=== PATIENT | female | born 1960 | race Caucasian/White ===

== ENCOUNTER 2016-07-19 14:50 | Inpatient (IN) ==
[2016-07-19] MEDS: *HR* LORazepam 1 MG TABLET PO ONE ×2 (15:32→19:46)
[2016-07-19 15:54] LABS: Basophils % 0.7 %; Eosinophils # 0.1 K/mcL (0.0-0.6); Eosinophils % 1.7 %; Hematocrit 37.5 % (35.3-44.9); Hemoglobin 12.4 g/dL (11.5-15.4); Immature Granulocytes % 0.5 % (0-4); Lymphocytes # 1.3 K/mcL (0.6-4.6); Lymphocytes % 32.8 %; Mean Corpuscular HGB Conc 33.1 g/dL (31.6-35.5); Mean Corpuscular Hemoglobin 30.6 pg (28.0-33.3); Mean Corpuscular Volume 92.6 fL (83.0-100.0); Mean Platelet Volume 10.9 fL (9.4-12.4); Monocytes # 0.3 K/mcL (0.0-1.3); Monocytes % 6.9 %; Neutrophils # 2.3 K/mcL (1.6-8.9); Platelet Count 127 K/mcL (140-400); Red Blood Count 4.05 M/mcL (3.82-4.97); Red Cell Distribution Width 13.2 % (11.5-14.5); Segmented Neutrophils % 57.4 %
[2016-07-19 15:55] LABS: Bilirubin,Urine Negative (Negative); Blood,Urine Negative (Negative); Clarity,Urine Cloudy (Clear); Color,Urine Yellow (Yellow); Glucose,Urine (UA) Normal (Normal); Ketones,Urine Negative (Negative); Leukocyte Esterase,Urine Moderate (Negative); Nitrite,Urine Negative (Negative); Protein,Urine Negative (Neg-Trace); Specific Gravity,Urine 1.013 (1.010-1.025); Urobilinogen,Urine Normal (Normal)
[2016-07-19 15:58] LABS: Amphetamine Screen,Urine Negative ng/mL (Cutoff=1000); Bacteria,Urine Few per hpf (None-Few); Barbiturate Screen,Urine Negative ng/mL (Cutoff=200); Benzodiazepines Screen,Urine Positive ng/mL (Cutoff=200); Cannabinoid Screen,Urine Negative ng/mL (Cutoff = 50); Cocaine Screen,Urine Negative ng/mL (Cutoff= 300); Hyaline Casts,Urine None Seen per lpf (None-Few); Opiate Screen,Urine Negative ng/mL (Cutoff=300); Phencyclidine Screen,Urine Negative ng/mL (Cutoff=25); Squamous Epithelial Cell,Urine Many per lpf (None-Few); WBC,Urine 30-50 per hpf (0-3)
[2016-07-19 16:09] LABS: Albumin 3.7 g/dL (3.5-5.0); Albumin/Globulin Ratio 1.1 (1.1-2.2); BUN/Creatinine Ratio 7 (6-26); Bilirubin,Direct 0.4 mg/dL (0.0-0.5); Bilirubin,Indirect 0.7 mg/dL (0.0-1.2); Bilirubin,Total 1.1 mg/dL (0.2-1.2); Blood Urea Nitrogen 6 mg/dL (7-20); Calcium 9.2 mg/dL (8.6-10.8); Carbon Dioxide 26 mEq/L (19-29); Chloride 108 mEq/L (98-109); Globulin 3.3 g/dL (2.4-3.5); Glucose 178 mg/dL (70-99); Osmolality,Calculated 294 (280-300); Potassium 3.6 mEq/L (3.5-4.5); Sodium 141 mEq/L (136-145); eGFR For African Americans > 60 (> 60); eGFR For Non-African Americans > 60 (> 60)
[2016-07-19 16:10] LABS: Acetaminophen < 1.0 mcg/mL (10-30); Ethanol < 10 mg/dL (0-10); Salicylate < 5.0 mg/dL (15-30)
[2016-07-19 16:30] LABS: Thyroid Stimulating Hormone 0.787 mcIU/mL (0.350-4.840)
[2016-07-19] MEDS ORDERED: cephALEXin 250 MG CAPSULE PO ONE (17:51)
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
[2016-07-19] MEDS ORDERED: Ibuprofen 400 MG TABLET PO PRN (21:40)
[2016-07-19] MEDS ORDERED: *HR* LORazepam 1 MG TABLET PO PRN (21:40)
[2016-07-19] MEDS ORDERED: MOM Conc 10 ML UD.LIQ PO PRN (21:40)
[2016-07-19] MEDS ORDERED: *HR* LORazepam 2 MG/ML VIAL IM PRN (21:40)
[2016-07-19] MEDS ORDERED: Haloperidol Lactate 5 MG/ML VIAL IM PRN (21:40)
[2016-07-19] MEDS ORDERED: traZODone 50 MG TABLET PO PRN (21:40)
[2016-07-19] MEDS ORDERED: Mag Hydrox/Al Hydrox/Simeth 30 ML UDC PO PRN (21:40)
[2016-07-19] MEDS ORDERED: hydrOXYzine pamoate 25 MG CAPSULE PO PRN (21:40)
[2016-07-19] MEDS ORDERED: diazePAM 2 MG TABLET PO PRN (21:47)
[2016-07-19] MEDS ORDERED: tiZANidine 4 MG TABLET PO PRN (21:47)
[2016-07-19] MEDS ORDERED: Ondansetron ODT 4 MG TAB.RAPDIS SL PRN (21:47)
[2016-07-19] MEDS ORDERED: INSULIN DETEMIR 70 UNIT SQ SCH (22:00)
[2016-07-19] MEDS: ARIPiprazole 5 MG TABLET PO SCH (22:41)
[2016-07-19] MEDS: cephALEXin 500 MG CAPSULE PO SCH (22:41)
[2016-07-19] MEDS: Pregabalin 75 MG CAPSULE PO SCH (22:41)
[2016-07-19] MEDS: lamoTRIgine 100 MG TABLET PO SCH (22:41)
[2016-07-19] MEDS: LIRAGLUTIDE 0.6 MG SQ SCH (22:44)
[2016-07-19] MEDS: Insulin DETEMIR 100 UNIT/ML X5UNITS SQ SCH (22:45)
[2016-07-20] MEDS: Aspirin 81 MG TAB.CHEW PO SCH (08:48)
[2016-07-20] MEDS: cephALEXin 500 MG CAPSULE PO SCH ×2 (08:48→20:20)
[2016-07-20] MEDS: Famotidine 20 MG TABLET PO SCH (08:48)
[2016-07-20] MEDS: *HR* Metformin 500 MG TABLET PO SCH ×2 (08:49→16:46)
[2016-07-20] MEDS: *HR* SitaGLIPtin 25 MG TABLET PO SCH ×2 (08:49→16:46)
--- NOTE | 2016-07-20 10:48 | Psychiatry History & Physical ---
Date of Encounter: 07/20/16 Time of Encounter: 10:15 History of Present Illness Patient Stated Chief Complaint: Suicidal ideation Medicare Admission Attestation: For traditional Medicare patients the provided hospital inpatient services are reasonable and necessary and in the case of services not specified as inpatient -only under 42 CFR 419.22 (n), that they are appropriately provided as inpatient services in accordance 42 CFR 412.3. For Critical Access Hospital the patient may reasonably be expected to be discharged or transferred to a hospital within 96 hours after admission to the Critical Access Hospital. Admitted From: Emergency Dept History of Present Illness: Ms. Martinez is a 56 year old female admitted from the emergency department for depression and suicidal ideation. Patient is stressed outlets by multiple medical problems including trigeminal neuralgia, diabetes, hyperlipidemia. She has been treated for depression with medication and seeing a psychiatrist and therapist. Patient was having thoughts about driving her car into a ditch. She denied any past suicide attempts or psychiatric hospitalizations. 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 She denies any use of alcohol or drugs. Past Med Surg Social Fam HX - Past Medical History Medical history: diabetes, GERD, hyperlipidemia, other - Past Psychiatric History Psychiatric history: Reports: depression, panic disorder. Denies: previous psychiatric hospitalization - Past Surgical History Surgical History: non-contributory, TIMOTHY/BSO - Social History Smoking Status: Never smoker Smokeless Tobacco Status: No Alcohol use: occasionally Drug use: none Medications & Allergies Amitriptyline [Elavil] 100 mg PO HS 10/28/15 [History] Pravastatin Sodium [Pravachol] 20 mg PO DAILY 10/28/15 [History] Pregabalin [Lyrica] 600 mg PO HS 10/28/15 [History] Ranitidine HCl [Heartburn Relief] 150 mg PO DAILY 10/28/15 [History] Tizanidine HCl [Zanaflex] 4 mg PO HS PRN 10/29/15 [History] ARIPiprazole [Abilify] 30 mg PO HS 02/27/16 [History] Insulin DETEMIR [Levemir] 70 unit SQ HS 02/27/16 [History] Sitagliptin Phos/Metformin HCl [Janumet 50-1,000 mg Tablet] 2 tab PO QPM [History] diazePAM [Valium] 2 mg PO DAILY PRN 02/27/16 [History] lamoTRIgine [Lamictal] 200 mg PO HS 02/27/16 [History] Aspirin 81 mg PO DAILY 05/08/16 [History] Ondansetron ODT [Zofran ODT] 4 mg SL Q6HR PRN #10 tab.aprildis 07/14/16 [Rx] Liraglutide [Victoza 2-Jamie] 0.6 mg SQ HS 07/19/16 [History] Allergies No Known Allergies Allergy (Verified 07/14/16 15:55) Review of Systems Psychiatric: Reports: depression, anxiety, suicidal ideation, hopelessness Mental Status Exam Patient orientation: Yes Person, Yes Time, Yes Place Level of alertness: Alert Patient appearance: Appropriate, Well Groomed, Obese Behavior: calm, cooperative, anxious Psychomotor activity: Slowed Eye contact: Maintains Eye Contact Mood description: Depressed, Anxious Affect description: congruent with mood, constricted Speech pattern: Normal rate, Normal rhythm, Normal tone Speech volume: Normal Thought process: Linear, Goal Oriented Thought content: Yes Suicidal ideation, No Homicidal ideation, No Overt delusions Perceptual disturbances: No Auditory hallucinations, No Visual hallucinations Attention span: Capable of Focused Attention Memory description: Grossly Intact Patient reliability: Reliable Historian Intelligence estimate: Average Judgment: Limited Insight: Partial Results - Vital Signs Vital signs: Temp Pulse Resp BP Pulse Ox 97.2 F L 96 20 108/63 98 07/20/16 09:00 07/20/16 09:00 07/20/16 09:00 07/20/16 09:00 07/19/16 14:59 - Labs Labs: Laboratory Last Values WBC 4.1 K/mcL (4.3-11.1) L 07/19/16 15:47 RBC 4.05 M/mcL (3.82-4.97) 07/19/16 15:47 Hgb 12.4 g/dL (11.5-15.4) 07/19/16 15:47 Hct 37.5 % (35.3-44.9) 07/19/16 15:47 MCV 92.6 fL (83.0-100.0) 07/19/16 15:47 MCH 30.6 pg (28.0-33.3) 07/19/16 15:47 MCHC 33.1 g/dL (31.6-35.5) 07/19/16 15:47 RDW 13.2 % (11.5-14.5) 07/19/16 15:47 Plt Count 127 K/mcL (140-400) L 07/19/16 15:47 MPV 10.9 fL (9.4-12.4) 07/19/16 15:47 Immature Gran % 0.5 % (0-4) 07/19/16 15:47 Seg Neutrophils % 57.4 % 07/19/16 15:47 Lymphocytes % 32.8 % 07/19/16 15:47 Monocytes % 6.9 % 07/19/16 15:47 Eosinophils % 1.7 % 07/19/16 15:47 Basophils % 0.7 % 07/19/16 15:47 Neutrophils # 2.3 K/mcL (1.6-8.9) 07/19/16 15:47 Lymphocytes # 1.3 K/mcL (0.6-4.6) 07/19/16 15:47 Monocytes # 0.3 K/mcL (0.0-1.3) 07/19/16 15:47 Eosinophils # 0.1 K/mcL (0.0-0.6) 07/19/16 15:47 Basophils # 0.0 K/mcL (0.0-0.2) 07/19/16 15:47 Sodium 141 mEq/L (136-145) 07/19/16 15:47 Potassium 3.6 mEq/L (3.5-4.5) 07/19/16 15:47 Chloride 108 mEq/L (98-109) 07/19/16 15:47 Carbon Dioxide 26 mEq/L (19-29) 07/19/16 15:47 BUN 6 mg/dL (7-20) L 07/19/16 15:47 Creatinine 0.86 mg/dL (0.57-1.11) 07/19/16 15:47 Est GFR ( Amer) > 60 (> 60) 07/19/16 15:47 Est GFR (Non-Af Amer) > 60 (> 60) 07/19/16 15:47 BUN/Creatinine Ratio 7 (6-26) 07/19/16 15:47 Glucose 178 mg/dL (70-99) H 07/19/16 15:47 POC Glucose 163 (58-89) H 07/20/16 07:04 Calculated Osmolality 294 (280-300) 07/19/16 15:47 Calcium 9.2 mg/dL (8.6-10.8) 07/19/16 15:47 Total Bilirubin 1.1 mg/dL (0.2-1.2) 07/19/16 15:47 Direct Bilirubin 0.4 mg/dL (0.0-0.5) 07/19/16 15:47 Indirect Bilirubin 0.7 mg/dL (0.0-1.2) 07/19/16 15:47 AST 34 Units/L (5-34) 07/19/16 15:47 ALT 48 Units/L (0-55) 07/19/16 15:47 Alkaline Phosphatase 66 Units/L (38-126) 07/19/16 15:47 Troponin I 0.01 ng/mL (0-0.03) 07/19/16 15:47 Serum Total Protein 7.0 g/dL (6.0-8.3) 07/19/16 15:47 Albumin 3.7 g/dL (3.5-5.0) 07/19/16 15:47 Globulin 3.3 g/dL (2.4-3.5) 07/19/16 15:47 Albumin/Globulin Ratio 1.1 (1.1-2.2) 07/19/16 15:47 Lipase 71 Units/L (8-78) 07/19/16 15:47 TSH 0.787 mcIU/mL (0.350-4.840) 07/19/16 15:47 Urine Color Yellow (Yellow) 07/19/16 15:28 Urine Clarity Cloudy (Clear) A 07/19/16 15:28 Urine pH 6.0 pH Units (5.0-8.0) 07/19/16 15:28 Ur Specific [place] 1.013 (1.010-1.025) 07/19/16 15:28 Urine Protein Negative mg/dL (Neg-Trace) 07/19/16 15:28 Urine Glucose (UA) Normal mg/dL (Normal) 07/19/16 15:28 Urine Ketones Negative mg/dL (Negative) 07/19/16 15:28 Urine Blood Negative (Negative) 07/19/16 15:28 Urine Nitrite Negative (Negative) 07/19/16 15:28 Urine Bilirubin Negative (Negative) 07/19/16 15:28 Urine Urobilinogen Normal mg/dL (Normal) 07/19/16 15:28 Ur Leukocyte Esterase Moderate (Negative) H 07/19/16 15:28 Urine Microscopic RBC 5-15 per hpf (0-3) H 07/19/16 15:28 Urine Microscopic WBC 30-50 per hpf (0-3) H 07/19/16 15:28 Ur Squamous Epith Cells Many per lpf (None-Few) H 07/19/16 15:28 Urine Bacteria Few per hpf (None-Few) 07/19/16 15:28 Hyaline Casts None Seen per lpf (None-Few) 07/19/16 15:28 Salicylates < 5.0 mg/dL (15-30) L 07/19/16 15:47 Urine Opiates Screen Negative ng/mL (Oktmgi=016) 07/19/16 15:28 Acetaminophen < 1.0 mcg/mL (10-30) L 07/19/16 15:47 Ur Barbiturates Screen Negative ng/mL (Ucyqtq=401) 07/19/16 15:28 Ur Phencyclidine Scrn Negative ng/mL (Cutoff=25) 07/19/16 15:28 Ur Amphetamines Screen Negative ng/mL (Ziqybz=4366) 07/19/16 15:28 U Benzodiazepines Scrn Positive ng/mL (Rjalqa=538) H 07/19/16 15:28 Urine Cocaine Screen Negative ng/mL (Cutoff= 300) 07/19/16 15:28 U Marijuana (THC) Screen Negative ng/mL (Cutoff = 50) 07/19/16 15:28 Ethyl Alcohol < 10 mg/dL (0-10) 07/19/16 15:47 Assessment and Plan (1) Recurrent major depression-severe Current visit: Yes Status: Acute Plan: Admit inpatient for safety and stabilization, Close observation, Suicide Precautions per unit protocol, Encourage participation in unit milieu, Group Therapy, Monitor sleep, Monitor appetite Additional Plan: Will add Cymbalta 30 mg twice a day benefits and side effects were discussed patient is agreeable to start and will monitor Patient was advised to work with her psychiatrist and PCP to review her polypharmacy Risks, benefits, side effects, alternatives discussed w/pt: Yes Patient agreeable to treatment: Yes Estimated Length of Stay (Days): 3 Qualifiers: Psychotic features: without psychotic features Qualified Code(s): F33.2 - Major depressive disorder, recurrent severe without psychotic features
[2016-07-20] MEDS: JANUMET PO SCH (17:06)
[2016-07-20] MEDS: ARIPiprazole 5 MG TABLET PO SCH (20:19)
[2016-07-20] MEDS: Pregabalin 75 MG CAPSULE PO SCH (20:19)
[2016-07-20] MEDS: lamoTRIgine 100 MG TABLET PO SCH (20:20)
[2016-07-20] MEDS: LIRAGLUTIDE 0.6 MG SQ SCH (20:21)
[2016-07-20] MEDS: Insulin DETEMIR 100 UNIT/ML X5UNITS SQ SCH (20:28)
[2016-07-21] MEDS ORDERED: SITAGLIPTIN 50 MG PO SCH (08:00)
[2016-07-21] MEDS ORDERED: METFORMIN 1000 MG PO SCH (08:00)
[2016-07-21] MEDS: Aspirin 81 MG TAB.CHEW PO SCH (08:36)
[2016-07-21] MEDS: cephALEXin 500 MG CAPSULE PO SCH ×2 (08:36→20:50)
[2016-07-21] MEDS: Famotidine 20 MG TABLET PO SCH (08:36)
--- NOTE | 2016-07-21 13:15 | Psychiatry Progress Note ---
Date of Encounter: 07/21/16 Time of Encounter: 13:00 Subjective Interval history: Patient is seen for follow-up. She reports feeling better, she participated in activities and socialize with other patients. She reported improved sleep and appetite. She denies suicidal ideation. She is motivated to add more activities to her scheduled and not feeling lonely. She tolerated medications changes. She is encouraged to journal and make notes. Review of Systems Psychiatric: Reports: depression, anxiety, suicidal ideation, hopelessness Objective: Exam Patient orientation: Yes Person, Yes Time, Yes Place Level of alertness: Alert Patient appearance: Appropriate, Well Groomed, Obese Behavior: calm, cooperative Psychomotor activity: Normal Eye contact: Maintains Eye Contact Mood description: Euthymic/stable, Anxious Affect description: congruent with mood, constricted Speech pattern: Normal rate, Normal rhythm, Normal tone Speech volume: Normal Thought process: Linear, Goal Oriented Thought content: No Suicidal ideation, No Homicidal ideation, No Overt delusions Perceptual disturbances: No Auditory hallucinations, No Visual hallucinations Judgment: Fair Insight: Partial Results - Vital Signs Vital Signs: Temp Pulse Resp BP Pulse Ox 97.2 F L 18 18 132/78 98 07/21/16 09:30 07/21/16 09:30 07/21/16 09:30 07/21/16 09:30 07/19/16 14:59 - Labs Labs: Laboratory Results - last 24 hr 07/21/16 06:48 POC Glucose 202 H Assessment and Plan (1) Recurrent major depression-severe Current visit: Yes Status: Acute Plan: Continue hospitalization, Close observation, Suicide Precautions per unit protocol, Encourage participation in unit milieu, Group Therapy, Monitor sleep, Monitor appetite Risks, benefits, side effects, alternatives discussed w/pt: Yes Patient agreeable to treatment: Yes Qualifiers: Psychotic features: without psychotic features Qualified Code(s): F33.2 - Major depressive disorder, recurrent severe without psychotic features Consult Discharge Plan - Plan Referrals: [facility] Tr[facility] Jaron Ramos [Outside] - 07/27/16 10:00 am (The above appointment is with Adrienne for counseling. You will also see Radha Salter in the same office on 08/13/16 at 9:30am )
[2016-07-21] MEDS: JANUMET PO SCH (17:35)
[2016-07-21] MEDS: LIRAGLUTIDE 0.6 MG SQ SCH (20:49)
[2016-07-21] MEDS: Insulin DETEMIR 100 UNIT/ML X5UNITS SQ SCH (20:50)
[2016-07-21] MEDS: lamoTRIgine 100 MG TABLET PO SCH (20:51)
[2016-07-21] MEDS: Pregabalin 75 MG CAPSULE PO SCH (20:52)
[2016-07-21] MEDS ORDERED: ARIPiprazole 10 MG TABLET PO SCH (21:00)
[2016-07-22] MEDS: cephALEXin 500 MG CAPSULE PO SCH (08:40)
[2016-07-22] MEDS: Aspirin 81 MG TAB.CHEW PO SCH (08:40)
[2016-07-22] MEDS: Famotidine 20 MG TABLET PO SCH (08:40)
[2016-07-22 09:06] VITALS: BP 138/83
--- NOTE | 2016-07-22 13:24 | Discharge Summary ---
Date of Encounter: 07/22/16 Time of Encounter: 13:00 Diagnosis - Discharge Diagnosis (1) Recurrent major depression-severe Status: Acute Qualifiers: Psychotic features: without psychotic features Qualified Code(s): F33.2 - Major depressive disorder, recurrent severe without psychotic features Medications - Discharge Medications Prescriptions: DULoxetine [Cymbalta] 30 mg PO BID #60 capsule. Amitriptyline [Elavil] 100 mg PO HS 10/28/15 [History] Pravastatin Sodium [Pravachol] 20 mg PO DAILY 10/28/15 [History] Pregabalin [Lyrica] 600 mg PO HS 10/28/15 [History] Ranitidine HCl [Heartburn Relief] 150 mg PO DAILY 10/28/15 [History] Tizanidine HCl [Zanaflex] 4 mg PO HS PRN 10/29/15 [History] ARIPiprazole [Abilify] 30 mg PO HS 02/27/16 [History] Insulin DETEMIR [Levemir] 70 unit SQ HS 02/27/16 [History] Sitagliptin Phos/Metformin HCl [Janumet 50-1,000 mg Tablet] 2 tab PO QPM [History] diazePAM [Valium] 2 mg PO DAILY PRN 02/27/16 [History] lamoTRIgine [Lamictal] 200 mg PO HS 02/27/16 [History] Aspirin 81 mg PO DAILY 05/08/16 [History] Ondansetron ODT [Zofran ODT] 4 mg SL Q6HR PRN #10 tab.rapdis 07/14/16 [Rx] Liraglutide [Victoza 2-Jamie] 0.6 mg SQ HS 07/19/16 [History] DULoxetine [Cymbalta] 30 mg PO BID #60 capsule. 07/22/16 [Rx] Patient Taking Own Medication 2 each PO QPM each 07/22/16 [Rx] cephALEXin [Keflex] 500 mg PO BID capsule 07/22/16 [Rx] Allergies No Known Allergies Allergy (Verified 07/14/16 15:55) Provider Date of admission: 07/19/16 18:35 Primary care physician: PCP NO Discharging clinician: Toñito Bhagat Assessment and Plan - Patient/Caregiver Discharge Instructions Activity: resume usual activities as tolerated Diet: regular diet - Follow up Plan Follow up with: Betlran Tran [facility] [employer] [employer] [facility] [Outside] - 07/27/16 10:00 am (The above appointment is with Adrienne for counseling. You will also see Radha Salter in the same office on 08/13/16 at 9:30am ) Functional capacity at discharge: independent ambulation Overall status at discharge: Stable Disposition: Home, Self-Care Hospital Course Hospital course: Ms. Martinez is a 56 year old female admitted for depression and suicidal ideation. For details of admission please see H&P On the unit medication were reviewed and Cymbalta 40 mg twice a day was added. Patient reported improvement in her moods and energy level and motivation. She denies suicidal ideation. She participated in activities and groups and made plans to add more activities to her scheduled and not to be lonely. She was future oriented and optimistic. Her discharge plans and follow-up were completed by the social science professor. - Time Spent with Patient Total time spent providing and/or coordinating discharge services: Less than 30 minutes Quality - Multiple Antipsychotics Patient discharged on 2 or more antipsychotic medications: No Procedures - Procedures Procedures: Medication Management, Crisis Stabilization, Supportive Therapy, Group Therapy, Psychoeducational Therapy Mental Status Exam - Mental Status Exam Patient orientation: Yes Person, Yes Time, Yes Place Level of alertness: Alert Patient appearance: Appropriate, Well Groomed, Obese Behavior: calm, cooperative Psychomotor activity: Slowed Eye contact: Maintains Eye Contact Mood description: Euthymic/stable Affect description: congruent with mood, full range Speech pattern: Normal rate, Normal rhythm, Normal tone Speech Volume: Normal Thought process: Linear, Goal Oriented Thought Content: No Suicidal ideation, No Homicidal ideation, No Overt delusions Perceptual Disturbances: No Auditory hallucinations, No Visual hallucinations Judgment: Limited Insight: Partial
== END 2016-07-22 17:10 | disposition home or self-care (01) | DRG 885 ==
LOC: EMEROO 14:50 → 1ANU 18:35
PROVIDERS: ADMIT Psychiatry & Neurology Psychiatry; ATTEND Psychiatry & Neurology Psychiatry

== ENCOUNTER 2018-06-01 23:26 | Observation (INO) ==
[2018-06-01] MEDS ORDERED: Isovue-370 500 ML BOTTLE IVP ONE (23:59)
[2018-06-02] MEDS ORDERED: 0.9 % Sodium Chloride 1,000 ML IVC ONE (00:38)
--- NOTE | 2018-06-02 01:11 | Emergency Department Note ---
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 Patient states she had acute onset of nausea, vertiginous symptoms after she had manipulation of the neck during a physical therapy session. Patient states symptoms started acutely after the physical therapy session. She now does not have vertiginous symptoms however she noticed a horizontal binocular diplopia that started about 12 hours prior to my examination. She initially presented at [place] emergency department however due to her diplopia and physical exam findings the center to [facility] for CTA of the head and neck. Patient denies recent trauma. Denies fever, chills, nausea, vomiting, diarrhea. There had the symptoms in the past. Denies recent upper respiratory infection. No antibiotic use. Denies sinus congestion or headache. Physician at previous emergency department had noticed a deficiency of the extraocular muscles and was concerned about possible stroke versus vertebral artery dissection. Pain Scale: 0 - Related Data Home Medications Medication Instructions Recorded Confirmed Amitriptyline [Elavil] 100 mg PO HS 10/28/15 06/01/18 Pravastatin Sodium [Pravachol] 20 mg PO DAILY 10/28/15 06/01/18 Tizanidine HCl [Zanaflex] 4 mg PO HS PRN 10/29/15 06/01/18 Insulin DETEMIR [Levemir] 70 unit SQ HS 02/27/16 06/01/18 diazePAM [Valium] 2 mg PO DAILY PRN 02/27/16 06/01/18 lamoTRIgine [Lamictal] 200 mg PO HS 02/27/16 06/01/18 Aspirin 81 mg PO DAILY 05/08/16 06/01/18 GlipiZIDE [Glipizide Xl] 5 mg PO DAILY 06/01/18 06/01/18 OLANZapine [Zyprexa] 5 mg PO HS 06/01/18 06/01/18 metFORMIN [Glucophage] 1,000 mg PO BIDWM 06/01/18 06/01/18 Previous Rx's Medication Instructions Recorded Ondansetron ODT [Zofran ODT] 4 mg SL Q6HR PRN #10 tab.rapdis 07/14/16 Allergies Allergy/AdvReac Type Severity Reaction Status Date / Time No Known Allergies Allergy Verified 07/14/16 15:55 All systems ED: reviewed and negative except as stated. Review of Systems: As Per [facility] Past Medical History - Past Medical History Attestation: Yes The following information was validated with the patient. 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 Bowel sounds present Neuro: A&O to person, place, time and situation. Pupils were equal and reactive to light and accommodation. Patient moving all extremities and did not have focal neurologic deficit on exam. Testing of the extraocular muscles did not reveal significant deficit on my exam however the right eye was seen and I have decreased mobility on previous physician exam. Psychiatric: cooperative and appropriate mood and affect. - General Limitations: no limitations General appearance: alert, in no apparent distress Course Vital Signs Temperature 97.8 F 06/02/18 00:03 Pulse Rate 82 04/18/19 00:03 Respiratory Rate 16 06/02/18 00:03 Blood Pressure 155/76 06/02/18 00:03 O2 Sat by Pulse Oximetry 98 06/02/18 00:03 Temperature 97.8 F 06/02/18 00:03 Pulse Rate 82 06/02/18 00:03 Respiratory Rate 16 06/02/18 00:03 Blood Pressure 155/76 06/02/18 00:03 O2 Sat by Pulse Oximetry 98 06/02/18 00:03 Oxygen Delivery Oxygen Delivery Room Air Medical Decision Making - MDM Narrative Medical decision making narrative: Patient has horizontal binocular diplopia, she will require CTA of the head, neck to rule out arterial dissection versus embolism. She will also likely require admission to the hospital for MRI and further workup. Imaging and laboratory evaluation is pending at this time. Patient care will be signed out to Dr. Ring pending imaging, laboratory evaluation, further evaluation and disposition. - Medical Records Medical records reviewed: Yes I reviewed the patient's medical records. - Lab Data Lab results reviewed: Yes I reviewed the patient's lab results. - Radiology Data Radiology results reviewed: Yes I reviewed the patient's radiology results.
[2018-06-02 02:32] LABS: BUN/Creatinine Ratio 16 (6-26); Blood Urea Nitrogen 12 mg/dL (6-20); Calcium 9.3 mg/dL (8.6-10.3); Carbon Dioxide 26 mEq/L (23-29); Chloride 103 mEq/L (98-107); Glucose 332 mg/dL (70-105); Osmolality,Calculated 301 (280-300); Sodium 139 mEq/L (136-145); eGFR For Non-African Americans > 60 (> 60)
[2018-06-02 02:33] LABS: Troponin I < 0.03 ng/mL (< 0.04)
[2018-06-02 02:36] LABS: Hematocrit 40.2 % (35.3-44.9); Hemoglobin 12.8 g/dL (11.5-15.4); Mean Corpuscular HGB Conc 31.8 g/dL (31.6-35.5); Mean Corpuscular Volume 97.3 fL (83.0-100.0); Mean Platelet Volume 11.3 fL (9.4-12.4); Platelet Count 110 K/mcL (140-400); Red Blood Count 4.13 M/mcL (3.82-4.97); Red Cell Distribution Width 13.8 % (11.5-14.5)
[2018-06-02 02:43] LABS: Prothrombin Time 11.6 Seconds (9.4-12.1)
[2018-06-02 02:45] LABS: Activated Partial Thrombo Time 38.4 Seconds (26.0-36.0)
[2018-06-02] MEDS ORDERED: Aspirin 325 MG TABLET PO ONE (05:09)
--- NOTE | 2018-06-02 06:52 | Urgent Care Visit Notes ---
Disposition Clinical Impression: Binocular vision disorder with diplopia Disposition: Admitted As Inpatient Condition: Good Time of Disposition: 03:00 History of Present Illness - General Chief Complaint: ED Eye Problems Stated Complaint: Double Vision/Dizziness- [facility] Time Seen by Provider: 06/01/18 23:51 Limitations: no limitations - Related Data Home Medications: Home Medications Medication Instructions Recorded Confirmed RX: Pravastatin Sodium [Pravachol] 20 mg PO HS 10/28/15 06/02/18 RX: diazePAM [Valium] 2 mg PO HS PRN 02/27/16 06/02/18 OLANZapine [Zyprexa] 5 mg PO HS 06/01/18 06/02/18 Aspirin [Adult Aspirin Regimen] 81 mg PO QPM 06/02/18 06/02/18 GlipiZIDE [Glipizide Xl] 5 mg PO QAM 06/02/18 06/02/18 Insulin DETEMIR [Levemir Flextouch] 70 unit SQ HS 06/02/18 06/02/18 Metformin HCl [Metformin ER 2,000 mg PO QPM 06/02/18 06/02/18 Osmotic] RX: Gabapentin [Neurontin] 900 mg PO HS 06/02/18 06/02/18 RX: Liraglutide [Victoza 3-Jamie] 1.8 mg SQ DAILY 06/02/18 06/02/18 Allergies/Adverse Reactions: Allergies Allergy/AdvReac Type Severity Reaction Status Date / Time No Known Allergies Allergy Verified 07/14/16 15:55 Past Medical History - Past Medical History Medical history: Reports: diabetes, GERD, hyperlipidemia, other Surgical history: Reports: non-contributory, TIMOTHY/BSO Psychiatric history: Reports: depression, panic disorder 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 Narrative Medical decision making narrative: Dr. Ring note: Patient was originally seen by prior attending physician Dr. Baron Dixon; Fixed bilateral diplopia since 10:11 AM. Initial imaging unremarkable. If this is an acute ischemic stroke in the distribution is in a small area of the brain which would not necessitate interventional radiologic procedures, especially now almost 20 hours after symptom onset. I did discuss the case with the on-call neurologist at [facility]. Patient was admitted in stable and improved condition to the hospitalist. MRI and neurology consult will happen after admission. No indication for emergent neurology, or interventional radiology intervention - Lab Data Result diagrams: 06/02/18 01:47 06/02/18 01:47 Lab Results 06/02/18 06/02/18 06/02/18 Range/Units 01:47 01:47 01:47 WBC 3.9 L (4.3-11.1) K/mcL RBC 4.13 (3.82-4.97) M/mcL Hgb 12.8 (11.5-15.4) g/dL Hct 40.2 (35.3-44.9) % MCV 97.3 (83.0-100.0) fL MCH 31.0 (28.0-33.3) pg MCHC 31.8 (31.6-35.5) g/dL RDW 13.8 (11.5-14.5) % Plt Count 110 L (140-400) K/mcL MPV 11.3 (9.4-12.4) fL PT 11.6 (9.4-12.1) Seconds INR 1.0 APTT 38.4 H (26.0-36.0) Seconds Sodium 139 (136-145) mEq/L Potassium 4.0 (3.5-5.1) mEq/L Chloride 103 (98-107) mEq/L Carbon Dioxide 26 (23-29) mEq/L BUN 12 (6-20) mg/dL Creatinine 0.74 (0.60-1.20) mg/dL Est GFR ( Amer) > 60 (> 60) Est GFR (Non-Af Amer) > 60 (> 60) BUN/Creatinine Ratio 16 (6-26) Glucose 332 H (70-105) mg/dL Calculated Osmolality 301 H (280-300) Calcium 9.3 (8.6-10.3) mg/dL Troponin I < 0.03 (< 0.04) ng/mL Course Vital Signs Temperature 97.8 F 06/02/18 00:03 Pulse Rate 82 06/02/18 00:03 Respiratory Rate 16 06/02/18 00:03 Blood Pressure 155/76 06/02/18 00:03 O2 Sat by Pulse Oximetry 98 06/02/18 00:03 Temperature 97.8 F 06/02/18 00:03 Pulse Rate 76 06/02/18 05:12 Respiratory Rate 18 06/02/18 06:46 Blood Pressure 120/61 06/02/18 06:46 O2 Sat by Pulse Oximetry 98 06/02/18 05:12 Oxygen Delivery Oxygen Delivery Room Air
[2018-06-02] MEDS ORDERED: Naloxone 0.4 MG/ML INJ IVP PRN (07:44)
[2018-06-02] MEDS ORDERED: traMADol 50 MG TABLET PO PRN (07:44)
[2018-06-02] MEDS ORDERED: D5% in Water 1,000 ML IVC PRN (07:49)
[2018-06-02] MEDS ORDERED: *HR* Dextrose 50 % in Water (Syg) 50 ML SYRINGE IVP PRN (07:49)
[2018-06-02] MEDS ORDERED: Dextrose Gel 15 GM/37.5 ML TUBE PO PRN ×2 (07:49)
[2018-06-02] MEDS: Insulin DETEMIR 100 UNIT/ML X5UNITS SQ SCH ×2 (09:11→21:25)
--- NOTE | 2018-06-02 09:53 | Internal Med History&Physical ---
Date of Encounter: 06/02/18 Time of Encounter: 09:47 Internal Medicine - H&P: HPI Chief complaint: double vision Plans for Post Hospital Care: Home History of present illness: Ms. 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 Patient presented to the hospital sudden onset double vision. Patient reports she has been taking PT/OT due to a left shoulder injury. On Wednesday following the exercises she started feeling light headed and having problem to keep her balance associated with nausea. On Wednesday her balance difficulty resolved. But then on Wednesday she started having double vision and she decided to go the ED for evaluation. She denies focal weakness, reported she cannot tell if she had any change in her speech because she lives alone. She denies light headedness, or the sensation of the room spinning around associated with the double vision. Reports the nausea has resolved but she continues to have double vision. denies headache, difficulty swallowing or numbness or tingling on her face or extremities. Past Med Surg Social Fam HX - Past Medical History Medical history: diabetes, GERD, hyperlipidemia, other Additional medical history: Trigeminal Neuropathy. Depression. Endomedriosis Psychiatric history: depression, panic disorder - Past Surgical History Surgical History: non-contributory, TIMOTHY/BSO Additional surgical history: D&C x 4. Glycerol Rhizotomy. leaft knee scope 02/2016 - Social History Smoking Status: Never smoker Smokeless Tobacco Status: No Alcohol use: occasionally Drug use: none Internal Medicine - H&P: Meds Pravastatin Sodium [Pravachol] 20 mg PO HS 10/28/15 [History] diazePAM [Valium] 2 mg PO HS PRN 02/27/16 [History] OLANZapine [Zyprexa] 5 mg PO HS 06/01/18 [History] Aspirin [Adult Aspirin Regimen] 81 mg PO QPM 06/02/18 [History] Gabapentin [Neurontin] 900 mg PO HS 06/02/18 [History] GlipiZIDE [Glipizide Xl] 5 mg PO QAM 06/02/18 [History] Insulin DETEMIR [Levemir Flextouch] 70 unit SQ HS 06/02/18 [History] Liraglutide [Victoza 3-Jamie] 1.8 mg SQ DAILY 06/02/18 [History] Metformin HCl [Metformin ER Osmotic] 2,000 mg PO QPM 06/02/18 [History] Allergy/AdvReac Type Severity Reaction Status Date / Time No Known Allergies Allergy Verified 07/14/16 15:55 All Systems PM: A 10-system review of systems was performed and is negative for pertinent findings except as documented above in the HPI. - Constitutional Constitutional: no chills, no fever(s), no weakness - EENT Eyes: blurry vision, diplopia, no decreased night vision, no loss of peripheral vision, no loss of vision, no pain, no photophobia, no seeing flashes, no spots in vision, no tunnel vision Nose, mouth and throat: no change in voice, no mouth pain - Cardiovascular Cardiovascular ROS IM: no chest pain, no edema, no lightheadedness, no palpitations, no paroxysmal nocturnal dyspnea, no syncope - Respiratory Respiratory: no cough - Gastrointestinal Gastrointestinal: no abdominal pain, no melena, no nausea, no vomiting - Genitourinary Genitourinary: no dysuria, no urinary frequency, no urinary incontinence, no urinary urgency - Musculoskeletal Musculoskeletal ROS IM: no muscle cramps, no muscle weakness - Integumentary Integumentary IM: no erythema - Neurological Neurological ROS: no confusion, no focal weakness, no frequent falls, no headache(s), no loss of vision, no numbness, no tingling, no vertigo, no weakness - Psychiatric Psychiatric: no anxiety, no hallucinations, no irritability - Endocrine Endocrine IM: no cold intolerance, no excessive sweating - Hematologic/Lymphatic Hematologic/Lymphatic: no lymphadenopathy - Allergic/Immunologic Allergic/Immunologic: no GI upset with certain foods Additional comments: Rest of the review of system negative. - Constitutional Vitals: Temp Pulse Resp BP Pulse Ox 97.8 F 80 16 130/72 98 06/02/18 09:00 06/02/18 09:00 06/02/18 09:00 06/02/18 09:00 06/02/18 08:06 Exam: Vitals: reviewed General: Patient AOx4. In mild distress due to double vision Head: atraumatic, normocephalic, Respiratory: Good respiratory effort. Clear to auscultation bilaterally, no wheezing, rales or crackles. Cardiovascular: RRR, normal s1 and s2, No clicks, rubs, gallops, or murmors. Abdomen: Obese, bowel sounds present normoactive x-4 quadrants. Abdomen is soft, nondistended. No guarding or rebound. Musculoskeletal: Spontaneously moving all extremities. no edema, no calf tenderness Skin: warm, dry, intact. Neuro: Sensation light touch intact. Cranial nerves 2-12 is intact. Not aphasic, rapid hand movements intact, [id number] intact, Psych: Patient's affect is normal Internal Med - H&P Results - Labs CBC & Chem 7: 06/02/18 01:47 06/02/18 01:47 Labs: Short CBC 06/02/18 Range/Units 01:47 WBC 3.9 L (4.3-11.1) K/mcL Hgb 12.8 (11.5-15.4) g/dL Hct 40.2 (35.3-44.9) % Plt Count 110 L (140-400) K/mcL BMP 06/02/18 01:47 Sodium 139 Potassium 4.0 Chloride 103 Carbon Dioxide 26 BUN 12 Creatinine 0.74 Glucose 332 H Calcium 9.3 Cardiac Enzymes 06/02/18 Range/Units 01:47 Troponin I < 0.03 (< 0.04) ng/mL - Impressions ITS Impressions Head CTA 06/01/18 23:59 IMPRESSION: No acute intracranial abnormality. Mild, less than 50%, stenosis of the internal carotid arteries by NASCET criteria. No intracranial flow-limiting stenosis. D/ / 06/02/2018 07:28:18 Fauzia Levin MD / julián Interpreting Provider: Fauzia Levin MD Neck CTA 06/01/18 23:59 IMPRESSION: No acute intracranial abnormality. Mild, less than 50%, stenosis of the internal carotid arteries by NASCET criteria. No intracranial flow-limiting stenosis. D/ / 06/02/2018 07:28:18 Fauzia Levin MD / julián Interpreting Provider: Fauzia Levin MD - Assessment and Plan (1) Diplopia Current Visit: Yes Status: Acute Assessment and plan: Patient reports diplopia of two days duration. CT/CT angio head IMPRESSION: No acute intracranial abnormality. Mild, less than 50%, stenosis of the internal carotid arteries by NASCET criteria. No intracranial flow-limiting stenosis. Plan MRI of the brain w/o contrast ordered to r/o CVA Bedside swallow evaluation by RN will continue aspirin 81mg/PO daily on a high intensity statin Neurology has been consulted recommendations appreciated consider TTE, if MRI positive for CVA. THS ordered (2) HLD (hyperlipidemia) Current Visit: Yes Status: Chronic Assessment and plan: Continue simvastatin 40 mg by mouth daily. Qualifiers: Hyperlipidemia type: unspecified Qualified Code(s): E78.5 - Hyperlipidemia, unspecified (3) DVT prophylaxis Current Visit: Yes Status: Chronic Assessment and plan: Heparin subcutaneous. (4) Recurrent major depression-severe Current Visit: No Status: Chronic Assessment and plan: Patient is on olanzapine 5 mg by mouth at bedtime Qualifiers: Psychotic features: without psychotic features Qualified Code(s): F33.2 - Major depressive disorder, recurrent severe without psychotic features (5) DM type 2 (diabetes mellitus, type 2) Current Visit: No Status: Chronic Assessment and plan: Hyperglycemic on presentation. Started on a carb controlled diet. levemir 10 unit BID, plus lispro medium dose ac. Qualifiers: Diabetes mellitus terminal clerk insulin use: with terminal clerk use Diabetes mellitus complication status: without complication Qualified Code(s): E11.9 - Type 2 diabetes mellitus without complications; Z79.4 - detention (current) use of insulin - Time Spent With Patient Total time spent is greater than 50% in coordination of care (as documented) at patient's floor/unit and/or counseling patient: Greater than 35 minutes (45)
--- NOTE | 2018-06-02 10:22 | Neurology - Consult Note ---
<Edi White J - Last Filed: 06/02/18 16:42> Date of Encounter: 06/02/18 Time of Encounter: 09:51 Assessment and Plan (1) Vertigo Current Visit: No Status: Acute (2) Diplopia Current Visit: Yes Status: Acute Neuro consulted to evaluate for cause of acute horizontal binocular diplopia with associated vertiginous symptoms. She reports her symptoms began rather abruptly. She denies any associated headache or eye pain. Initially there was some concern for possible dissection. However, CTA of the head and neck were unremarkable. Etiology continues to be unknown at this time; however, differential does include malignancy versus vascular etiology versus myasthenia gravis versus other. With the exception of the horizontal binocular diplopia the patient's neurological exam is nonfocal. At this juncture we are awaiting the results of the MRI; further treatment will be dictated by MRI results. Will order myasthenia panel History of Present Illness Chief complaint: Double vision, vertigo and nausea HPI: Ms. 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 She presents for evaluation of acute onset of horizontal binocular diplopia with associated vertiginous symptoms. She reports that the symptoms began Wednesday afternoon. She notes that on Wednesday she was receiving occupational therapy involving head and neck manipulation. After this manipulation she began to feel some dizziness and nausea and was having balance issues. The symptoms extended into Wednesday but did resolved by Wednesday evening. Then suddenly on Wednesday afternoon she began to experience the binocular diplopia. She denies any focal weakness/paresthesias, dysphagia, dysarthria, facial asymmetry headache or eye pain. She reports that the vertigo has subsided however, the horizontal binocular diplopia persists. Given the fact that these symptoms occurred shortly after head and neck manipulation there was concern for dissection. A CTA of the head and neck was unremarkable and did not reveal any occlusion, dissection or emboli. Given ongoing symptoms there is still concern for possible malignancy, vascular etiology or myasthenia gravis. Neurology will continue to evaluate for further causes. Past Med Surg Social Fam HX - Past Medical History Medical history: diabetes, GERD, hyperlipidemia, other Additional medical history: Trigeminal Neuropathy. Depression. Endomedriosis Psychiatric history: depression, panic disorder - Past Surgical History Surgical History: non-contributory, TIMOTHY/BSO Additional surgical history: D&C x 4. Glycerol Rhizotomy. leaft knee scope 02/2016 - Social History Smoking Status: Never smoker Smokeless Tobacco Status: No Alcohol use: occasionally Drug use: none Medications and Allergies Pravastatin Sodium [Pravachol] 20 mg PO HS 10/28/15 [History] diazePAM [Valium] 2 mg PO HS PRN 02/27/16 [History] OLANZapine [Zyprexa] 5 mg PO HS 06/01/18 [History] Aspirin [Adult Aspirin Regimen] 81 mg PO QPM 06/02/18 [History] Gabapentin [Neurontin] 900 mg PO HS 06/02/18 [History] GlipiZIDE [Glipizide Xl] 5 mg PO QAM 06/02/18 [History] Insulin DETEMIR [Levemir Flextouch] 70 unit SQ HS 06/02/18 [History] Liraglutide [Victoza 3-Jamie] 1.8 mg SQ DAILY 06/02/18 [History] Metformin HCl [Metformin ER Osmotic] 2,000 mg PO QPM 06/02/18 [History] Allergy/AdvReac Type Severity Reaction Status Date / Time No Known Allergies Allergy Verified 07/14/16 15:55 All Systems: The remainder of the systems were reviewed and are negative Review of Systems: REVIEW OF SYSTEMS GENERAL: Negative for any nausea, vomiting, fevers, chills, or weight loss, fatigue NEUROLOGIC: POSITIVE-binocular horizontal diplopia, vertigo. - -Chronic neuropathy of right CN V S/P chronic trigeminal neuralgia NEGATIVE-orbital pain or headache, blind spots, facial asymmetry, dysphagia, dysarthria, hemiparesis, any sensory deficits, ataxia, paresthesias or unilateral weakness. HEENT: Negative for any head trauma, neck trauma MUSCULOSKELETAL: NEGATIVE-loss of strength Physical Examination - Vital Signs Vital Signs: Initial Vital Signs Temp Pulse Resp BP Pulse Ox 97.8 F 82 16 155/76 98 06/02/18 00:03 06/02/18 00:03 06/02/18 00:03 06/02/18 00:03 06/02/18 00:03 - Exam Exam: Examination: General Examination: *CONSTITUTIONAL: Alert and oriented x3, no acute distress *GENERAL APPEARANCE OF PATIENT obese female who appears healthy overall and well groomed *EYES: pupils equal, round, reactive to light and accommodation, conjunctiva clear without masses or ulcerations, fundi normal. *CARDIOVASCULAR RRR, S1, S2, no mumurs, rubs, or gallops, no peripheral edema, distal temperature normal, dorsalis pedis pulses normal. See vital signs Musculoskeletal: *GAIT AND STATION normal, with normal Romberg testing, no abnormalities such as broad base gait or spasticity *ASSESSMENT OF MUSCLE STRENGTH IN THE UPPER AND LOWER EXTREMITIES oumar ateral deltoid, bicep, tricep, classified ad taker strength, hip flexors ,anterior tibialis, dorsoflexion of the foot 5/5 *MUSCLE TONE IN THE UPPER AND LOWER EXTREMITIES normal. No abnormal movements, fasciculations or atrophy identified. Neurological: *ORIENTATION to person, situation, time and place *RECURRENT AND REMOTE MEMORY intact *ATTENTION AND CONCENTRATION are normal *LANGUAGE FUNCTION no significant aphasia or dysarthia was noted. *FUND OF KNOWLEDGE aware of current events, past history, vocabulary *MENTAL attention span and concentration normal. *CN II optic fundi were normal, no papilledema noted. *CN III,IV, PERRLA extraocular eye movements were full without evidence of ocular motility disturbance, no nystagmus and no ptosis noted. *CN V shows normal sensation and jaw opens symmetrically. *CN VII shows normal facial movement symmetrically, upper and lower bilaterally. *CN VIII shows no significant hearing loss on exam *CN IX,,X palate elevated symmetrically *CN XI normal strength in the sternocleidomastoid muscles, symmetrical shoulder shrugging. *CN XII tongue protruded in the midline, with normal strength and movement. *SENSORY EXAMINATION light touch intact *REFLEXES: deep tendon reflexes were absent diffusely, no pathological reflexes were noted. *CEREBELLAR TESTING normal finger to nose, heel/knee/monzon *PAIN LEVEL 0 Results - Laboratory Findings CBC and BMP: 06/02/18 01:47 06/02/18 01:47 Abnormal lab findings: Abnormal lab results WBC 3.9 K/mcL (4.3-11.1) L 06/02/18 01:47 Plt Count 110 K/mcL (140-400) L 06/02/18 01:47 APTT 38.4 Seconds (26.0-36.0) H 06/02/18 01:47 Glucose 332 mg/dL (70-105) H 06/02/18 01:47 POC Glucose 259 mg/dL (70-99) H 06/02/18 08:05 Calculated Osmolality 301 (280-300) H 06/02/18 01:47 - Diagnostic Findings Additional findings: CT/CT angio neck IMPRESSION: No acute intracranial abnormality. Mild, less than 50%, stenosis of the internal carotid arteries by NASCET criteria. No intracranial flow-limiting stenosis. Consult Discharge Plan - Plan Referrals: Priscilla Rodriguez, PRECISION DEVICES INSPECTOR/TESTER [Primary Care Provider] - <Baudilio Kamara - Last Filed: 06/02/18 19:04> Date of Encounter: 06/02/18 Assessment and Plan (1) Vertigo Current Visit: No Status: Acute (2) Diplopia Current Visit: Yes Status: Acute I have personally performed a [id number]-[id number] assessment of the patient and have reviewed the PA/GLOVE BOARDER note. My impressions are as follows: I agree with the assessment of the PRECISION DEVICES INSPECTOR/TESTER as stated above. Is difficult to arrive a unified diagnosis here because she did experience vertigo as well as diplopia. He CTA of the head and neck was negative for evidence of occlusion, aneurysm or carotid artery dissection. MRI scan of the brain was normal. Headache has resolved. No evidence of a stimulant infarct or otherwise. We will check a myasthenia gravis antibody panel. She is diabetic was not well controlled, perhaps related dealing with a third nerve lesion. You may discharge at your discretion. I would like to follow-up with her my office as an outpatient. History of Present Illness HPI: Chart was reviewed, patient was seen and examined independently. Case was discussed with the PRECISION DEVICES INSPECTOR/TESTER. I agree with his assessment of the history of present illness as above. All Systems: The remainder of the systems were reviewed and are negative Review of Systems: The balance of the systems review is negative. Physical Examination - Vital Signs Vital Signs: Initial Vital Signs Temp Pulse Resp BP Pulse Ox 97.8 F 82 16 155/76 98 06/02/18 00:03 06/02/18 00:03 06/02/18 00:03 06/02/18 00:03 06/02/18 00:03 - Exam Exam: I have personally performed a pgsy-sl-dlpo assessment of the patient and have reviewed the PA/GLOVE BOARDER note. My impressions are as follows: I agree with the examination of the CMP as stated above, with the addition of the presence of binocular diplopia. Which is worse with near gaze. Results - Laboratory Findings CBC and BMP: 06/02/18 01:47 06/02/18 01:47 Abnormal lab findings: Abnormal lab results WBC 3.9 K/mcL (4.3-11.1) L 06/02/18 01:47 Plt Count 110 K/mcL (140-400) L 06/02/18 01:47 APTT 38.4 Seconds (26.0-36.0) H 06/02/18 01:47 Glucose 332 mg/dL (70-105) H 06/02/18 01:47 POC Glucose 268 mg/dL (70-99) H 06/02/18 17:15 Calculated Osmolality 301 (280-300) H 06/02/18 01:47
[2018-06-02] MEDS: Insulin LISPRO 300 UNITS/3 ML VIAL SQ SCH ×2 (11:39→17:20)
[2018-06-02] MEDS ORDERED: diazePAM 2 MG TABLET PO PRN (20:26)
[2018-06-02] MEDS: Gabapentin 300 MG CAPSULE PO SCH (21:25)
[2018-06-02] MEDS: OLANZapine 5 MG TAB.RAPDIS PO SCH (21:25)
[2018-06-02] MEDS: *HR* Heparin 5,000 UNIT/ML VIAL SQ SCH (21:26)
[2018-06-03 06:02] LABS: Basophils % 1.4 %; Eosinophils # 0.2 K/mcL (0.0-0.6); Eosinophils % 5.4 %; Hematocrit 33.2 % (35.3-44.9); Hemoglobin 11.3 g/dL (11.5-15.4); Immature Granulocytes % 0.7 % (0-4); Immature Platelets 4.8 % (1.1-6.1); Lymphocytes # 1.3 K/mcL (0.6-4.6); Lymphocytes % 43.4 %; Mean Corpuscular Volume 94.1 fL (83.0-100.0); Mean Platelet Volume 11.1 fL (9.4-12.4); Monocytes # 0.2 K/mcL (0.0-1.3); Monocytes % 8.1 %; Neutrophils # 1.2 K/mcL (1.6-8.9); Red Blood Count 3.53 M/mcL (3.82-4.97); Red Cell Distribution Width 13.5 % (11.5-14.5)
[2018-06-03] MEDS: *HR* Heparin 5,000 UNIT/ML VIAL SQ SCH (06:10)
[2018-06-03 06:13] LABS: BUN/Creatinine Ratio 17 (6-26); Blood Urea Nitrogen 11 mg/dL (6-20); Calcium 9.2 mg/dL (8.6-10.3); Carbon Dioxide 24 mEq/L (23-29); Chloride 106 mEq/L (98-107); Glucose 258 mg/dL (70-105); Magnesium 1.8 mg/dL (1.6-2.6); Osmolality,Calculated 298 (280-300); Phosphorous 4.5 mg/dL (2.7-4.5); Sodium 140 mEq/L (136-145); eGFR For Non-African Americans > 60 (> 60)
[2018-06-03 06:23] LABS: Platelet Count 80 K/mcL (140-400)
[2018-06-03 06:24] LABS: Platelet Estimate Slight Decrease (Normal)
--- NOTE | 2018-06-03 07:20 | Electrocardiograph Report ---
[facility] Test Date: 2018-06-02 Pat Name: Mejia Martinez Department: EXAM7 Room: 3A25 Gender: F Shopfitter: : 1960 Requested By: Baron Dixon Order Number: [id number] Reading MD: Duc Chun Measurements Intervals [place] Rate: 76 P: 40 DE: 159 QRS: 62 QRSD: 137 T: 4 QT: 423 QTc: 476 Interpretive Statements Sinus rhythm Right bundle branch block Electronically Signed On 06-03-2018 7:18:58 EDT by Duc Chun
[2018-06-03] MEDS: Aspirin Enteric Coated 81 MG Tablet PO SCH (08:26)
[2018-06-03] MEDS: Insulin LISPRO 300 UNITS/3 ML VIAL SQ SCH ×3 (08:26→17:40)
[2018-06-03] MEDS: Insulin DETEMIR 100 UNIT/ML X5UNITS SQ SCH ×2 (08:26→20:19)
--- NOTE | 2018-06-03 16:06 | Internal Med Progress Note ---
Hospitalist Progress Note - Encounter Date of Encounter: 06/03/18 Time of Encounter: 16:03 - Subjective Interval History: Patient is still has diplopia. Not worse or better. Review the lab with pancytopenia. Denies fever chills nausea vomiting headache dizziness chest pain shortness of breath abdominal pain urinary or bowel complaint - Exam Vitals: Temp Pulse Resp BP Pulse Ox 98.0 F 73 16 140/82 97 06/03/18 14:29 06/03/18 14:29 06/03/18 14:29 06/03/18 14:29 06/03/18 14:29 Exam: Vitals: reviewed General: Patient AOx4. No acute distress Head: atraumatic, normocephalic, Respiratory: Good respiratory effort. Clear to auscultation bilaterally, no wheezing, rales or crackles. Cardiovascular: RRR, normal s1 and s2, no murmurs Abdomen: Obese, bowel sounds present normoactive x-4 quadrants. Abdomen is soft, nondistended. No guarding or rebound. Musculoskeletal: Spontaneously moving all extremities. no edema, no calf tenderness Neuro: Sensation light touch intact. Cranial nerves 2-12 is intact. Not aphasic, rapid hand movements intact, lynacv-zn-ecil intact, - Assessment and Plan (1) DM type 2 (diabetes mellitus, type 2) Current Visit: No Status: Chronic Assessment and Plan: Hyperglycemic on presentation. Started on a carb controlled diet. levemir 10 unit BID, plus lispro medium dose ac. (2) Recurrent major depression-severe Current Visit: No Status: Chronic Assessment and Plan: Patient is on olanzapine 5 mg by mouth at bedtime (3) Diplopia Current Visit: Yes Status: Acute Assessment and Plan: Patient reports diplopia of two days duration. CT/CT angio head IMPRESSION: No acute intracranial abnormality. Mild, less than 50%, stenosis of the internal carotid arteries by NASCET criteria. No intracranial flow-limiting stenosis. Plan MRI of the brain w/o contrast -no acute intracranial abnormality. Minimal chronic microvascular disease CTA head and neck with no acute finding Neurologist note reviewed-unknown etiology differential malignancy versus vascular etiology versus myasthenia gravis versus other. Will wait for further recommendation. (4) HLD (hyperlipidemia) Current Visit: Yes Status: Chronic Assessment and Plan: Continue simvastatin 40 mg by mouth daily. (5) DVT prophylaxis Current Visit: Yes Status: Chronic Assessment and Plan: Stopped heparin with the concern of pancytopenia. (6) Pancytopenia Current Visit: Yes Status: Acute Assessment and Plan: Newly diagnosed today. Patient is asymptomatic. Could be hemodilution versus secondary to heparin. No IV fluid and his start heparin. Will repeat CBC in the morning if is still persistent will consult application technician. - Time Spent with Patient Total time spent is greater than 50% in coordination of care (as documented) at patient's floor/unit and/or counseling patient: 25 - 35 minutes Plan of Care Discussed with: patient Internal Medicine: Result - Labs CBC & Chem 7: 06/03/18 05:00 06/03/18 05:00 Labs: Short CBC 06/03/18 Range/Units 05:00 WBC 3.0 L (4.3-11.1) K/mcL Hgb 11.3 L D (11.5-15.4) g/dL Hct 33.2 L (35.3-44.9) % Plt Count 80 L (140-400) K/mcL Neutrophils # 1.2 L (1.6-8.9) K/mcL BMP 06/03/18 05:00 Sodium 140 Potassium 4.0 Chloride 106 Carbon Dioxide 24 BUN 11 Creatinine 0.64 Glucose 258 H Calcium 9.2 - ABG Interpretation ABG results: PT/INR, D-dimer PT 11.6 Seconds (9.4-12.1) 06/02/18 01:47 - Impressions Impressions Head CTA 06/01/18 23:59 IMPRESSION: No acute intracranial abnormality. Mild, less than 50%, stenosis of the internal carotid arteries by NASCET criteria. No intracranial flow-limiting stenosis. D/ / 06/02/2018 07:28:18 Fauzia Levin MD / julián Interpreting Provider: Fauzia Levin MD Neck CTA 06/01/18 23:59 IMPRESSION: No acute intracranial abnormality. Mild, less than 50%, stenosis of the internal carotid arteries by NASCET criteria. No intracranial flow-limiting stenosis. D/ / 06/02/2018 07:28:18 Fauzia Levin MD / julián Interpreting Provider: Fauzia Levin MD Consult Discharge Plan - Plan Referrals: Priscilla Rodriguez, SECONDARY SCHOOL TEACHER [Primary Care Provider] - (1) DM type 2 (diabetes mellitus, type 2) Qualifiers: Diabetes mellitus regional intermodal truck driver insulin use: with regional intermodal truck driver use Diabetes mellitus complication status: without complication Qualified Code(s): E11.9 - Type 2 diabetes mellitus without complications; Z79.4 - longterm (current) use of insulin (2) Recurrent major depression-severe Qualifiers: Psychotic features: without psychotic features Qualified Code(s): F33.2 - Major depressive disorder, recurrent severe without psychotic features (4) HLD (hyperlipidemia) Qualifiers: Hyperlipidemia type: unspecified Qualified Code(s): E78.5 - Hyperlipidemia, unspecified
[2018-06-03] MEDS: Gabapentin 300 MG CAPSULE PO SCH (20:20)
[2018-06-03] MEDS: OLANZapine 5 MG TAB.RAPDIS PO SCH (20:20)
[2018-06-04] MEDS: Aspirin Enteric Coated 81 MG Tablet PO SCH (08:27)
[2018-06-04] MEDS: Insulin DETEMIR 100 UNIT/ML X5UNITS SQ SCH (08:28)
[2018-06-04] MEDS: Insulin LISPRO 300 UNITS/3 ML VIAL SQ SCH ×2 (08:28→12:08)
[2018-06-04 10:53] VITALS: BP 134/78
[2018-06-04 12:49] LABS: Hemoglobin 12.4 g/dL (11.5-15.4); Red Cell Distribution Width 13.2 % (11.5-14.5)
[2018-06-04 12:50] LABS: Eosinophils # 0.2 K/mcL (0.0-0.6); Eosinophils % 5.8 %; Hematocrit 37.3 % (35.3-44.9); Immature Platelets 5.1 % (1.1-6.1); Lymphocytes # 1.1 K/mcL (0.6-4.6); Mean Corpuscular HGB Conc 33.2 g/dL (31.6-35.5); Mean Corpuscular Hemoglobin 31.5 pg (28.0-33.3); Mean Corpuscular Volume 94.7 fL (83.0-100.0); Mean Platelet Volume 11.3 fL (9.4-12.4); Monocytes # 0.3 K/mcL (0.0-1.3); Monocytes % 8.4 %; Neutrophils # 1.5 K/mcL (1.6-8.9); Red Blood Count 3.94 M/mcL (3.82-4.97); Segmented Neutrophils % 49.8 %
[2018-06-04 12:51] LABS: Platelet Count 82 K/mcL (140-400)
--- NOTE | 2018-06-04 12:58 | Discharge Summary ---
- NOTES TO OUTPATIENT PROVIDER Notes to Outpatient Provider: Follow up with PCP in 2 or 3 days.-CBC monitor in one week for questionable pancytopenia. Follow-up with neurologist in 2 weeks for diplopia. Make appointment with eye specialists within 1 week for diplopia evaluation Orders not resulted at time of discharge: Pending orders 06/02/18 07:47 Bedside Swallowing Evaluation [EVAL] Stat 06/02/18 13:27 Acetylcholine Receptor Ab Rflx Routine Date of Encounter: 06/04/18 Time of Encounter: 12:56 - Discharge Diagnosis (1) Diplopia Priority: Primary Status: Acute Assessment and Plan: No acute CVA Patient reports diplopia of two days duration. CT/CT angio head IMPRESSION: No acute intracranial abnormality. Mild, less than 50%, stenosis of the internal carotid arteries by NASCET criteria. No intracranial flow-limiting stenosis. Plan MRI of the brain w/o contrast -no acute intracranial abnormality. Minimal chronic microvascular disease CTA head and neck with no acute finding Neurologist note reviewed-unknown etiology differential malignancy versus vascular etiology versus myasthenia gravis versus other. Myasthenia panel Okay to discharge patient with outpatient follow-up from neurological standpoint in 2 weeks-talked to on-call neurologist-he also recommended to be seen by resource conservation specialist on OPD basis Patient is still has diplopia at the time of discharge. (2) DM type 2 (diabetes mellitus, type 2) Priority: Secondary Status: Chronic Assessment and Plan: Will resume home medicine Qualifiers: Diabetes mellitus long-term insulin use: with termite control service representative use Diabetes mellitus complication status: without complication Qualified Code(s): E11.9 - Type 2 diabetes mellitus without complications; Z79.4 - penitentiary (current) use of insulin (3) Recurrent major depression-severe Priority: Secondary Status: Chronic Assessment and Plan: Patient is on olanzapine 5 mg by mouth at bedtime Qualifiers: Psychotic features: without psychotic features Qualified Code(s): F33.2 - Major depressive disorder, recurrent severe without psychotic features (4) HLD (hyperlipidemia) Priority: Secondary Status: Chronic Assessment and Plan: Continue simvastatin 40 mg by mouth daily. Qualifiers: Hyperlipidemia type: unspecified Qualified Code(s): E78.5 - Hyperlipidemia, unspecified (5) Pancytopenia Priority: Primary Status: Acute Assessment and Plan: Transient. Improving CBC. Possibly due to heparin that was stopped yesterday and improvement in CBC report today. Patient is asymptomatic with no sign of infection and no active bleeding. Will discharge patient home with instruction to follow CBC within 1 week with the help of PCP. Hospital course: Ms. Martinez is a 57 year old female patient got admitted for diplopia. Neurologist was consulted and ruled out any acute stroke. Myasthenia panel was ordered by neurology team. It is okay to discharge patient home from neuro standpoint with outpatient follow-up with neurologist and also needs evaluation by automotive wholesale parts advisor on OPD basis. Please see details in the diagnosis section of discharge summary. At the time of discharge patient is clinically and hemodynamically stable, ambulating well and tolerating oral diet. Discharge discussed with: patient, family, nurse - Time Spent with Patient Total time spent providing and/or coordinating discharge services: Time spent: Less than 30 minutes - Discharge Medications Prescriptions: Continue diazePAM [Valium] 2 mg PO HS PRN PRN Reason: Anxiety Aspirin [Adult Aspirin Regimen] 81 mg PO QPM Gabapentin [Neurontin] 900 mg PO HS Insulin DETEMIR [Levemir Flextouch] 70 unit SQ HS Metformin HCl [Metformin ER Osmotic] 2,000 mg PO QPM GlipiZIDE [Glipizide Xl] 5 mg PO QAM Liraglutide [Victoza 3-Jamie] 1.8 mg SQ DAILY Pravastatin Sodium [Pravachol] 20 mg PO HS OLANZapine [Zyprexa] 5 mg PO HS Home Medications: Pravastatin Sodium [Pravachol] 20 mg PO HS 10/28/15 [History] diazePAM [Valium] 2 mg PO HS PRN 02/27/16 [History] OLANZapine [Zyprexa] 5 mg PO HS 06/01/18 [History] Aspirin [Adult Aspirin Regimen] 81 mg PO QPM 06/02/18 [History] Gabapentin [Neurontin] 900 mg PO HS 06/02/18 [History] GlipiZIDE [Glipizide Xl] 5 mg PO QAM 06/02/18 [History] Insulin DETEMIR [Levemir Flextouch] 70 unit SQ HS 06/02/18 [History] Liraglutide [Victoza 3-Jamie] 1.8 mg SQ DAILY 06/02/18 [History] Metformin HCl [Metformin ER Osmotic] 2,000 mg PO QPM 06/02/18 [History] Allergies/Adverse Reactions: Allergy/AdvReac Type Severity Reaction Status Date / Time No Known Allergies Allergy Verified 07/14/16 15:55 Date of admission: 06/02/18 06:20 Primary care physician: Priscilla Rodriguez CNP Consults: 06/02/18 07:45 Consult to Physical Therapy [CONS] Routine Comment: Evaluate, develop and implement POC Reason for Consult: cva work up Does patient have active BEDREST order?: No Is patient medically & hemodynamically stable?: Yes 06/02/18 07:48 Consult to Neurology [CONS] Routine Consulting Provider: Neurology [facility] Reason for Consult: diplopia Call Completed: No - Constitutional Vitals: Temp Pulse Resp BP Pulse Ox 98.0 F 78 16 134/78 95 06/04/18 10:49 06/04/18 10:49 06/04/18 10:49 06/04/18 10:49 06/04/18 10:49 Exam: General appearance: No acute distress Head exam: Atraumatic Eye exam: EOMI, PERRLA ENT exam: Moist oral mucosa Neck nontender, supple Respiratory exam: Clear to auscultation bilaterally Cardiovascular exam: Regular rate and rhythm, no systolic murmur Abdominal exam: Soft, nontender, nondistended, positive bowel sounds Extremities exam: No calf tenderness, no pedal edema Present: Skin-no rash, warm, dry, intact Neurological exam: Alert, awake, oriented 3, CN II-XII intact, no focal deficits. No facial droop. Normal speech. Normal gait. Romberg sign negative. Diplopia - Patient Status Disposition: Home, Self-Care Condition: Good Overall status at discharge: patient is progressing back to baseline - Discharge Instructions Follow Up With: Priscilla Rodriguez CNP [Primary Care Provider] - - Diet and Activity Activity: increase activity as tolerated Diet: advance to your usual diet
== END 2018-06-04 14:30 | disposition home or self-care (01) ==
LOC: 3ANU 23:26 → EMEROOARM 23:26 → 3ANU 06-02 06:47
PROVIDERS: ADMIT Pediatrics; ATTEND Pediatrics